=== PATIENT | female | born 1980 | race Two or more races ===

== ENCOUNTER 2023-12-11 18:18 | Emergency (ER) | payer OTHER ==
[~2023-12-11] VITALS: Ht 160 cm; Wt 62.0 kg
[2023-12-11 18:25] VITALS: BP 119/78; PULSE 85; RESP 19; TEMP 98.7; O2SAT 100
[2023-12-11 22:15] LABS: BASOPHILS % 0.5 % (0.0-2.0); EOSINOPHILS % 0.1 % (0.0-5.0); HEMATOCRIT. 42.2 % (36.0-48.0); HEMOGLOBIN. 14.4 g/dL (12.0-16.0); LYMPHOCYTES % 13.8 % (20.0-50.0); MEAN CORPUSCULAR HEMOGLOBIN 32.1 pg (28.0-32.0); MEAN CORPUSCULAR VOLUME 94.5 fL (81.0-99.0); NEUTROPHILS % 80.6 % (40.0-76.0); PLATELET 266 x1000/uL (130-400); RED BLOOD CELL COUNT 4.47 mill/uL (4.2-5.4); RED CELL DISTRIBUTION WIDTH 13.6 % (11.6-14.6); WHITE BLOOD COUNT 11.2 x1000/uL (4.5-11.0)
[2023-12-11 22:20] LABS: CHLORIDE 109 mEq/L (98-107); POTASSIUM 3.9 mEq/L (3.5-5.1); SODIUM 140 mEq/L (136-145)
[2023-12-11 22:21] LABS: CARBON DIOXIDE 24 mEq/L (21-32)
[2023-12-11 22:22] LABS: CALCIUM 9.9 mg/dL (8.7-10.4)
[2023-12-11 22:26] LABS: CREATININE 0.7 mg/dL (0.6-1.0); GLUCOSE 105 mg/dL (70-105); HCG SCREEN NEGATIVE
[2023-12-11 22:27] LABS: UREA NITROGEN BLOOD 11 mg/dL (9-23)
[2023-12-11 22:28] LABS: ALANINE AMINOTRANSFERASE 20 IU/L (10-49); ALBUMIN 4.5 g/dL (3.2-4.8); ASPARTATE AMINOTRANSFERASE 19 IU/L (<34)
[2023-12-11 22:29] LABS: BILIRUBIN TOTAL 0.4 mg/dL (0.1-1.0); PROTEIN TOTAL 7.7 g/dL (6.0-8.3)
[2023-12-11 22:30] LABS: TROPONIN I HIGH SENSITIVITY < 4 ng/L (3.0-34)
[2023-12-11] MEDS ORDERED: CYCL5TAB MT (22:44)
[2023-12-11] MEDS: TETANUS, DIPHTHERIA, PERTUSSIS VAC/PF 0.5ML (>10YR OLD) IM ONE (23:19)
[2023-12-11] MEDS: KETOROLAC 30MG/ML VIAL IM ONE (23:22)
== END 2023-12-11 23:25 | disposition home or self-care (01) ==
LOC: ER 18:18
DX: S80.11XA Contusion of right lower leg, initial encounter (principal); R07.89 Other chest pain; V49.49XA Driver injured in collision with other motor vehicles in traffic accident, initial encounter; Y93.89 Activity, other specified; Y92.89 Other specified places as the place of occurrence of the external cause; Y99.8 Other external cause status
CPT/HCPCS: 99285; 71045; 80053; 84703; 85025; 84484; 36415; 73030; 73590; 93005; 96372; J1885